=== PATIENT | male | born 1935 | race Caucasian/White ===

== ENCOUNTER → 2017-02-26 | Outpatient (CLI) | payer OTHER ==
[2017-02-26 12:32] LABS: BASOPHILS 0.6 % (0.0-2.0); EOSINOPHILS 1.6 % (0.0-3.0); HEMATOCRIT 38.4 % (42.0-52.0); HEMOGLOBIN 12.9 gm/dL (14.0-18.0); LYMPHOCYTES 14.8 % (24.0-44.0); MCHC 33.7 g/dL (28.0-37.0); MONOCYTES 10.7 % (1.0-8.0); PLATELET COUNT 271 thou/uL (150-400); POLYS 72.3 % (36.0-66.0); RDW 12.7 % (10.5-14.5); WBC 5.5 thou/uL (4.0-11.0)
[2017-02-26 12:33] LABS: MANUAL DIFF NO
[2017-02-26 12:38] LABS: ALBUMIN 3.4 g/dL (3.4-5.0); CALCIUM 8.8 mg/dL (8.5-10.1); CREATININE 0.8 mg/dL (0.7-1.3); MAGNESIUM 2.2 mg/dL (1.8-2.4); POTASSIUM 3.8 mmol/L (3.5-5.1); TOTAL BILIRUBIN 0.4 mg/dL (<0.1-1.0); TOTAL PROTEIN 6.5 g/dL (6.4-8.2)
[2017-02-26 13:05] LABS: TSH 2.31 uIU/mL (0.358-3.740)
== END ==
LOC: SEN 09:17
PROVIDERS: Registered Nurse
DX: G31.84 Mild cognitive impairment of uncertain or unknown etiology (principal); R60.0 Localized edema; Z87.891 Personal history of nicotine dependence

== ENCOUNTER → 2017-04-05 | Outpatient (CLI) | payer OTHER | LOC: SEN 10:20 | DX: G31.84 Mild cognitive impairment of uncertain or unknown etiology (principal); R60.9 Edema, unspecified ==